=== PATIENT | male | born 1970 | race Caucasian/White ===

== ENCOUNTER 2017-04-08 07:22 | Emergency (ER) | payer SELFPAY ==
[~2017-04-08] VITALS: Ht 182.9 cm; Wt 93.7 kg
[~2017-04-08 07:22] MED LIST: IBUP800T23 PO; METH750T2 PO
[2017-04-08 07:26] VITALS: BP 174/122; PULSE 66; RESP 16; TEMP 97.6; O2SAT 98
[2017-04-08] MEDS ORDERED: KETOROLAC TROMETHAMINE 60 MG/2 ML (IM) VIAL IM ONE (08:00)
[2017-04-08] MEDS ORDERED: DIAZEPAM 5 MG TAB PO ONE (08:00)
--- NOTE | 2017-04-08 08:16 | PD ---
HPI Chief Complaint: Back/ Neck Pain or Injury Time Seen by Provider: 07:42 Travel History International Travel<30 days: No Contact w/Intl Traveler<30days: No Traveled to known affect area: No History of Present Illness HPI 46yo M with no significant PMH presents to the ED with c/o low back pain for 3 days. States he has been having similar intermittent back pain for 1 year and pain is localized in right lower back. However, sometimes it does down right thigh. Pt said yesterday, he started feeling numbness in his right anterior thigh which is new. Denies any fever, focal weakness, trauma, IVDA, chest pain , sob, n/v. Pain is better in certain position and worst in others. Did not take anything for pain. PFSH Past Medical History Diminished Hearing: No Tetanus Vaccination: Unknown Social History Alcohol Use: No Tobacco Use: Yes Substance Use: No Allergies-Medications (Allergen,Severity, Reaction): Coded Allergies: No Known Allergies (Unverified Adverse Reaction, Unknown, 04/08/17) Reported Meds & Prescriptions Reported Meds & Active Scripts Active No Active Prescriptions or Reported Medications Review of Systems Except as stated in HPI: all other systems reviewed are Neg Physical Exam Narrative GENERAL: 46yo M in mild distress. SKIN: Focused skin assessment warm/dry. HEAD: Atraumatic. Normocephalic. EYES: Pupils equal and round. No scleral icterus. No injection or drainage. CARDIOVASCULAR: Regular rate and rhythm. No murmur appreciated. RESPIRATORY: No accessory muscle use. Clear to auscultation. Breath sounds equal bilaterally. GASTROINTESTINAL: Abdomen soft, non-tender, nondistended. BACK: No midline ttp thoracic or lumbar spine. Pain is right paraspinal L5 but not tender to palpation. No mass. MUSCULOSKELETAL: No obvious deformities. No clubbing. No cyanosis. No edema. Negative straight leg test. NEUROLOGICAL: Awake and alert. No obvious cranial nerve deficits. Motor grossly within normal limits. Normal speech. Decreased sensation right anterior thigh. No saddle anesthesia. PSYCHIATRIC: Appropriate mood and affect; insight and judgment normal. Data Data Last Documented VS Vital Signs Date Time Temp Pulse Resp B/P (MAP) Pulse Ox O2 Delivery O2 Flow Rate FiO2 04/08/17 08:44 75 16 128/75 (92) 96 Room Air 04/08/17 07:26 97.6 Orders Orders Mri L Spine W/O Contrast (04/08/17 ) Diazepam (Valium) (04/08/17 08:00) Ketorolac Inj (Toradol Inj) (04/08/17 08:00) [facility] Medical Decision Making Medical Screen Exam Complete: Yes Emergency Medical Condition: Yes Differential Diagnosis L4 radiculopathy vs. disc herniation vs. musculoskeletal pain Narrative Course 46yo M with right sided lower back pain that has been intermittent for 1 year. However, pt now has numbness in anterior right thigh which is new. Feel that this is L4 radiculopathy and MRI LS would be the best image for it but that it is not an emergent study. Pt has no insurance and after discussion, did order MRI LS. Pt given toradol and valium which has resolved the pain. Denies any fever, IVDA, focal weakness, urinary or fecal incontinence. No midline spine ttp. BP was elevated at 174/122 but repeat in the exam room was 128/75. I was informed that MRI is down today. I do feel that pt should eventually obtain an MRI LS if symptoms persist but that it is not an emergent study at this time to transfer pt to the main hospital to obtain it. I explained to patient and he also does not want to be transferred and will try to follow up as outpatient and knows to return to the ED if symptoms worsen. Diagnosis Primary Impression: Back pain Qualified Codes: M54.41 - Lumbago with sciatica, right side; G89.29 - Other chronic pain Patient Instructions: General Instructions Departure Forms: Tests/Procedures Additional Instructions: Please return to the ED immediately if you have any urinary or fecal incontinence, worsening pain, weakness, or any other concerning symptoms. Please follow up at [facility]. Med/Other Pt SpecificInfo: Prescription(s) given Scripts Ibuprofen (Ibuprofen) 600 Mg Tab 600 MG PO Q8H Y for PAIN, #20 TAB 0 Refills Prov: McphersonAmerica DO 04/08/17 Disposition: 01 DISCHARGE HOME Condition: Stable [place] Mcpherson DO Apr 08, 2017 08:16
[2017-04-08 08:44] VITALS: BP 128/75; PULSE 75; RESP 16; O2SAT 96
[2017-04-08] MEDS ORDERED: IBUP-232 PO (09:28)
== END 2017-04-08 09:36 | disposition home or self-care (01) ==
LOC: PHED 07:22
DX: M54.41 Lumbago with sciatica, right side (principal); G89.29 Other chronic pain; Z72.0 Tobacco use
CPT/HCPCS: 96372; 99284; J1885